=== PATIENT | female | born 1950 | race Caucasian/White ===

== ENCOUNTER 2021-10-14 10:21 | Outpatient (CLI) | payer MEDICARE, OTHER ==
[2021-10-14 23:31] LABS: SARS-CoV-2 PCR by NAA Not Detected (NotDetected)
== END 2021-10-14 10:22 | disposition home or self-care (01) ==
LOC: CSHLAB 10:21
PROVIDERS: ATTEND Surgery
DX: Z01.818 Encounter for other preprocedural examination (principal); Z20.822 Contact with and (suspected) exposure to COVID-19; K64.8 Other hemorrhoids
CPT/HCPCS: 93005; 93010; U0003; U0005

== ENCOUNTER 2021-10-17 08:23 | Day surgery (SDC) | payer MEDICARE, OTHER ==
[2021-10-14 13:35] VITALS: BMI 33.3
[2021-10-17] MEDS ORDERED: Lidocaine 1% MPF 2 ML VIAL ONE (08:54)
[2021-10-17] MEDS ORDERED: PROPOFOL 20 ML ONE (10:07)
[2021-10-17] MEDS ORDERED: Fentanyl 100 MCG/2 ML VIAL ONE ×2 (10:07→11:11)
[2021-10-17] MEDS ORDERED: Ondansetron PF 4 MG/2 ML Vial ONE (10:08)
[2021-10-17] MEDS ORDERED: Dexamethasone 20 MG/5 ML VIAL ONE (10:08)
[2021-10-17] MEDS ORDERED: Lidocaine 1% PF 5 ML VIAL ONE (10:08)
[2021-10-17] MEDS ORDERED: Bupivacaine PF 0.5% 30 ML VIAL ONE (10:10)
[2021-10-17] MEDS ORDERED: EPINEPHrine 1 MG/ML AMP ONE (10:10)
[2021-10-17] MEDS ORDERED: traMADol HCl 50 MG TAB PO PRN ×2 (10:25→11:33)
[2021-10-17] MEDS ORDERED: PHENYLEPHRINE-NS 100 MCG/ML 10 ML SYRINGE ONE (10:40)
[2021-10-17] MEDS ORDERED: Acetaminophen 325 MG TAB PO PRN (11:33)
== END 2021-10-17 12:25 | disposition home or self-care (01) ==
LOC: CSHSDC 08:23
PROVIDERS: ATTEND Surgery
DX: K64.8 Other hemorrhoids (principal); I10 Essential (primary) hypertension; Z79.899 Other long term (current) drug therapy; M81.0 Age-related osteoporosis without current pathological fracture
CPT/HCPCS: 88304; J0171; J1100; J2405; J2704; J3010; J3490; S0020

== ENCOUNTER 2022-01-29 14:38 | Outpatient (CLI) | payer MEDICARE, OTHER | END 2022-01-29 14:39 | disposition home or self-care (01) | LOC: CSHMAMMO 14:38 | PROVIDERS: ATTEND Family Medicine | DX: Z12.31 Encounter for screening mammogram for malignant neoplasm of breast (principal) | CPT/HCPCS: 77063; 77067 ==

== ENCOUNTER 2022-10-17 02:39 | Emergency (ER) | payer MEDICARE, OTHER ==
[2022-10-17] MEDS ORDERED: Lidocaine 1% w/Epinephrine 1:100K 20 ML VIAL FS SCH (03:45)
[2022-10-17] MEDS ORDERED: Triple Antibiotic Oint 1 GM Packet ONE (04:01)
[2022-10-17] MEDS ORDERED: Ondansetron ODT 4 MG TAB ONE (04:03)
== END 2022-10-17 04:14 | disposition home or self-care (01) ==
LOC: CSHERS 02:39
DX: S01.01XA Laceration without foreign body of scalp, initial encounter (principal); K29.00 Acute gastritis without bleeding; W22.8XXA Striking against or struck by other objects, initial encounter
CPT/HCPCS: 12014; 70450; 72125; Q0162

== ENCOUNTER 2023-08-27 13:36 | Outpatient (CLI) | payer MEDICARE, OTHER | END 2023-08-27 13:37 | disposition home or self-care (01) | LOC: CSHMAMMO 13:36 | PROVIDERS: ATTEND Family Medicine | DX: Z12.31 Encounter for screening mammogram for malignant neoplasm of breast (principal); Z13.820 Encounter for screening for osteoporosis; N95.9 Unspecified menopausal and perimenopausal disorder; M81.0 Age-related osteoporosis without current pathological fracture; M85.88 Other specified disorders of bone density and structure, other site | CPT/HCPCS: 77063; 77067; 77080 ==

== ENCOUNTER 2023-11-27 02:15 | Emergency (ER) | payer MEDICARE | END 2023-11-27 04:22 | disposition home or self-care (01) | LOC: CSHERS 02:15 | DX: S00.01XA Abrasion of scalp, initial encounter (principal); I10 Essential (primary) hypertension; W06.XXXA Fall from bed, initial encounter | CPT/HCPCS: 70450 ==

== ENCOUNTER 2023-12-07 15:06 | Emergency (ER) | payer MEDICARE ==
[2023-12-07 16:27] LABS: #Basophils 0.07 10x3/uL (0.0-0.2); #Eosinphils 0.21 10x3/uL (0.0-0.5); #Monocytes 0.74 10x3/uL (0.0-1.1); #Neutrophils 6.02 10x3/uL (1.5-8.4); %Basophils 0.7 % (0.0-2.0); %Eosinophils 2.2 % (0.0-6.0); %Lymphocytes 27.2 % (18.0-47.0); %Monocytes 7.6 % (0.0-10.0); Hematocrit 35.1 % (34.9-44.5); Hemoglobin 11.9 g/dL (12.0-15.5); Mean Corpuscular HGB CONC 33.9 g/dL (32.0-36.0); Mean Corpuscular Hemoglobin 31.2 pg (27.0-33.0); Mean Corpuscular Volume 92.1 fL (81.6-98.3); Mean Platelet Volume 10.2 fL (7.4-10.4); Platelet Count 236 10x3/uL (150-450); RBC Distribution Width 13.5 % (11.5-14.5); Red Blood Cell (RBC) Count 3.81 10x6/uL (3.90-5.03); White Blood Cell (WBC) Count 9.7 10x3/uL (3.5-10.5)
[2023-12-07 16:47] LABS: Bilirubin Neg (Negative); Blood, Urine Negative (Negative); Clarity Clear (Clear); Glucose, Urine (Dipstick) Normal (Negative); Ketone, Urine Negative (Negative); Leukocyte Negative (Negative); Nitrite Negative (Negative); Protein, Urine (Dipstick) Negative (Neg-Trace); Urobilinogen Normal mg/dL (Less than 2)
[2023-12-07 16:55] LABS: ALT (SGPT) 19 U/L (8-55); AST (SGOT) 17 U/L (5-34); Alkaline Phosphatase 71 U/L (40-110); Anion Gap 14 mmol/L (10-20); BUN (Urea Nitrogen) 30 mg/dL (9.8-20.1); Bilirubin, Total 0.2 mg/dL (0.2-1.2); Calc. Creatinine Clearance 0 mL/min (70-130); Calcium 9.3 mg/dL (7.8-10.44); Carbon Dioxide 26 mmol/L (23-31); Chloride 103 mmol/L (98-107); Estimated GFR 67; Globulin 2.9 g/dL (2.4-3.5); Glucose 137 mg/dL (83-110); Protein, Total 6.9 g/dL (5.8-8.1); Sodium 139 mmol/L (136-145)
[2023-12-07 16:55] LABS: Bacteria/HPF Rare-Few HPF (None Seen); CAUTI Indications for Culture Pelvic or flank pain; RBC/HPF 0-3 HPF (0-3); Squamous Epithelial 0-3 HPF (0-3); WBC/HPF 0-3 HPF (0-3)
[2023-12-07 16:56] LABS: Urine Culture Reflex No No
== END 2023-12-07 17:48 | disposition home or self-care (01) ==
LOC: CSHERS 15:06
DX: I95.9 Hypotension, unspecified (principal); T46.1X5A Adverse effect of calcium-channel blockers, initial encounter; I10 Essential (primary) hypertension
CPT/HCPCS: 80053; 81001; 85025; 99283